=== PATIENT | female | born 1980 | race Caucasian/White ===

== ENCOUNTER 2018-09-21 17:57 | Emergency (ER) | payer SELFPAY ==
[~2018-09-21] VITALS: Ht 170.2 cm; Wt 70.3 kg
[~2018-09-21 17:57] MED LIST: HYDR-3164 PO; POLY10DR LEFTEYE
[2018-09-21 18:14] VITALS: BP 136/88
--- NOTE | 2018-09-21 19:04 | PHYS DOC ---
Past Medical History Past Medical History: No Pertinent History, Alcoholism, Other Additional Past Medical Histor: "Bone disorder" Past Surgical History: No Surgical History Alcohol Use: Heavy Drug Use: None Adult General Chief Complaint Chief Complaint: LOWER EXTREMITY SWELLING HPI HPI Patient is a 38 year old female who presents with a low right doyle sore that is quarter-sized and open and draining purulent fluid also has 2 smaller rates her-sized sores on the top of her right foot. Patient states they have been there for about 3 weeks and she's been applying triple antibiotic ointment to them using peroxide and. Baking soda bath. Patient states she's been having some body aches and some nausea and a cough she is feeling okay at this time. Patient denies any drug use but states she does smoke cigarettes. She has not have a primary care provider and she does have no known drug allergies. Patient states that she's gotten rashes and had skin infections before in the past. She states she has had a PE in the past. Review of Systems Review of Systems Constitutional: Denies fever or chills [] Eyes: Denies change in visual acuity, redness, or eye pain [] HENT: Denies nasal congestion or sore throat [] Respiratory: Denies cough or shortness of breath [] Cardiovascular: No additional information not addressed in HPI [] GI: Denies abdominal pain, nausea, vomiting, bloody stools or diarrhea [] : Denies dysuria or hematuria [] Musculoskeletal: Denies back pain or joint pain [] Integument: Right lower doyle quarter-sized open draining wound with slight redness around it and right foot to eraser sized open draining wounds. Denies rash or skin lesions [] Neurologic: Denies headache, focal weakness or sensory changes [] Endocrine: Denies polyuria or polydipsia [] All other systems were reviewed and found to be within normal limits, except as documented in this note. Allergies Allergies Allergies Coded Allergies Type Severity Reaction Last Updated Verified No Known Drug Allergies 12/01/13 No Physical Exam Physical Exam Constitutional: Well developed, well nourished, no acute distress, non-toxic appearance. [] HENT: Normocephalic, atraumatic, bilateral external ears normal, oropharynx moist, no oral exudates, nose normal. [] Eyes: PERRLA, EOMI, conjunctiva normal, no discharge. [] Neck: Normal range of motion, no tenderness, supple, no stridor. [] Cardiovascular:Heart rate regular rhythm, no murmur [] Lungs & Thorax: Bilateral breath sounds clear to auscultation [] Abdomen: Bowel sounds normal, soft, no tenderness, no masses, no pulsatile masses. [] Skin: Right doyle where sites open draining wound with a purulent center and slight redness around it and to a razor-sized wounds to the top of the right foot that have purulent centers and slight redness around it. Warm, dry, no erythema, no rash. [] Back: No tenderness, no CVA tenderness. [] Extremities: No tenderness, no cyanosis, no clubbing, ROM intact, no edema. [] Neurologic: Alert and oriented X 3, normal motor function, normal sensory function, no focal deficits noted. [] Psychologic: Affect normal, judgement normal, mood normal. [] Current Patient Data Vital Signs Vital Signs Date Time Temp Pulse Resp B/P (MAP) Pulse Ox O2 Delivery O2 Flow Rate FiO2 09/21/18 18:14 98.1 110 18 136/88 (104) 97 Room Air 98.1 EKG EKG [] Radiology/Procedures Radiology/Procedures Right foot Course & Med Decision Making Course & Med Decision Making Patient is a 38 year old female who presents with a low right doyle sore that is quarter-sized and open and draining purulent fluid also has 2 smaller rates her-sized sores on the top of her right foot. Patient states they have been there for about 3 weeks and she's been applying triple antibiotic ointment to them using peroxide and. Baking soda bath. Patient states she's been having some body aches and some nausea and a cough she is feeling okay at this time. Patient denies any drug use but states she does smoke cigarettes. She has not have a primary care provider and she does have no known drug allergies. Patient states that she's gotten rashes and had skin infections before in the past. She states she has had a PE in the past. Her is 1+ swelling to the top of the right foot the patient states is actually normal for her as she has had a foot injury in that foot with surgeries and the foot actually will swell up Orozco than that at times. Patient states that she has some tingling every now and then but is not painful it does not itch or burn. All the wounds have a white center and she states it open to drains in the leg goes up. Patient states that they did have a black center but no longer do. Patient states she's not sure she's been bitten by a spider or not. Patient states when they first came out they did itch. Pedal pulses present and strong. Patient has no weakness in any of her extremities. Skin is pink warm and dry. Negative Homans sign. Less than 3 second cap refill. Afebrile. Xray preliminary shows no acute findings. Patient will be treated with Bactrim and told to return to ED or her Primary care Provider for a wound check in 48 hours. Dragon Disclaimer Dragon Disclaimer This electronic medical record was generated, in whole or in part, using a voice recognition dictation system. Departure Departure Impression: Primary Impression: Multiple wounds of skin Disposition: HOME, SELF-CARE Condition: STABLE Referrals: NO PCP (PCP) Patient Instructions: Abscess Additional Instructions: Follow up with her primary care return to the ED in 48 hours for a wound check. The medications as prescribed. Scripts Sulfamethoxazole/Trimethoprim (BACTRIM DS TABLET) 1 Each Tablet 1 TAB PO BID, #20 TAB Prov: SIMRAN SELLERS APRN 09/21/18 SIMRAN SELLERS APRN Sep 21, 2018 19:04
[2018-09-21] MEDS ORDERED: SULF1TAB24 PO (20:07)
--- NOTE | 2018-09-21 20:32 | RAD ---
Indication:painful and discolored foot, possible infection, prior injury TECHNIQUE: 3 views of the right foot COMPARISON:None FINDINGS: No acute fracture or dislocation. 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 No periosteal reaction or cortical erosion to suggest osteomalacia. No soft tissue emphysema. 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 Mild soft tissue swelling seen in the dorsum of the foot. IMPRESSION: 1. No radiographic evidence of osteoarthritis. 2. No soft tissue emphysema. 3. Incidental findings as described above. Electronically signed by: Wagner Farris DO (09/21/2018 8:28 PM) [facility]
== END 2018-09-21 20:30 | disposition home or self-care (01) ==
LOC: ER 17:57
DX: S91.301A Unspecified open wound, right foot, initial encounter (principal); S81.801A Unspecified open wound, right lower leg, initial encounter; R05 Cough; R11.0 Nausea; F10.20 Alcohol dependence, uncomplicated; Y90.9 Presence of alcohol in blood, level not specified; M79.18 Myalgia, other site; Z86.711 Personal history of pulmonary embolism; X58.XXXA Exposure to other specified factors, initial encounter; Y93.89 Activity, other specified; Y92.89 Other specified places as the place of occurrence of the external cause; Y99.8 Other external cause status
CPT/HCPCS: 73630; 99283